=== PATIENT | female | born 1950 | race Caucasian/White ===

== ENCOUNTER → 2016-10-09 | Outpatient (CLI) | payer MEDICARE, BC ==
[~2016-10-09] MED LIST: ADVAIR 100-501 EACH IH; CHLORDIAZEPOXI1 EAC1 PO; CLONAZEPAM1 MG PO; ELAVIL10 MG PO; FLUOXETINE HCL40 MG PO; HYDROXYZINE HCL25 MG PO; LORAZEPAM0.5 MG PO; PRAVASTATIN SOD40 MG PO; PROVENTIL17 GM IH; SINGULAIR10 MG PO
== END | disposition home or self-care (01) ==
LOC: CDC 12:46
DX: Z01.810 Encounter for preprocedural cardiovascular examination (principal); K64.8 Other hemorrhoids
CPT/HCPCS: 93000